=== PATIENT | female | born 2005 | race African-American/Black ===

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

== ENCOUNTER 2023-03-25 11:43 | Emergency (ER) | payer MEDICAID ==
[~2023-03-25] VITALS: Ht 149.9 cm; Wt 140.0 kg
[2023-03-25 11:48] VITALS: TEMP 98.6
[2023-03-25] MEDS ORDERED: FLUORESCEIN SODIUM 1 MG STRIP OU ONE (12:30)
[2023-03-25] MEDS ORDERED: PROPARACAINE HCL 0.5% 15 ML OPHTHALMIC SOLUTION OU ONE (12:30)
[2023-03-25] MEDS ORDERED: OFLOXACIN 0.3% 5 ML OPHTHALMIC SOLUTION OD SCH (13:15)
[2023-03-25 13:47] VITALS: BP 121/76; PULSE 68; RESP 18
== END 2023-03-25 14:00 | disposition home or self-care (01) ==
LOC: EMS 11:43
DX: H16.001 Unspecified corneal ulcer, right eye (principal); J45.909 Unspecified asthma, uncomplicated; Z91.013 Allergy to seafood; Z91.010 Allergy to peanuts
CPT/HCPCS: 65220; 99284; J9035; Z7502; Z7610